=== PATIENT | male | born 1960 | race Caucasian/White ===

== ENCOUNTER 2022-05-06 13:53 | Emergency (ER) | payer OTHER, SELFPAY ==
[2022-05-06 14:07] VITALS: BP 152/70; PULSE 76; RESP 18; TEMP 37.1; O2SAT 96; BMI 42.9
--- NOTE | 2022-05-06 16:55 | ED_ITS ---
HPI - General Adult General Time Seen by Provider: 16:55 Date Seen: 05/06/22 Chief complaint: Extremity Pain/Injury, Lower Stated complaint: Right calf injury Time Seen by Provider: 05/06/22 16:52 Source: patient Mode of arrival: ambulatory History of Present Illness HPI narrative: Raphael is a 62-year-old male past medical history includes hypertension, diabetes mellitus type 2, presents emerged department with a right lower extremity injury. Patient states that he usually goes for a walk 6-7 days per week, it is about 2 to 2-1/2 mi. patient did not notice any injury to his right lower extremity. He has had varicose vein stripping on that lower extremity in the past, he has had issues like this before where they did a ultrasound which was normal. He again walked Friday and Friday with no difficulty, he woke up Friday morning increased bruising and swelling in the right lower extremity, pain is mostly a right calf, and around his ankles, he was wearing some compression stockings, pain is better when he walks. No history of any DVTs or PEs, no recent travel. He denies any shortness of breath or chest pain. Did not hear a popping sensation or known injury. The bruising and swelling has worsened. Patient denies any numbness or tingling of his right lower extremity. Due to worsening discomfort he presents emerged department. Related Data Home Medications Medication Instructions Recorded Confirmed aspirin 81 mg tablet,delayed 81 mg PO DAILY 05/06/22 05/06/22 release (Adult Aspirin Regimen) atorvastatin 10 mg tablet mg 05/06/22 glipizide 10 mg tablet mg 05/06/22 losartan 25 mg tablet mg 05/06/22 omega-3 fatty acids PO 05/06/22 Allergies Allergy/AdvReac Type Severity Reaction Status Date / Time No Known Drug Allergies Allergy Verified 05/06/22 14:13 Review of Systems Status of ROS: Reports: 10 or more systems reviewed and unremarkable except as noted in History and below Exam Narrative: Exam Narrative: General: No obvious distress sitting comfortably HEENT: Pupils equal round reactive to light, extraocular muscles intact Neck: Supple, no JVD, full range of motion Lungs: Clear to auscultation bilaterally Heart: Normal sinus rhythm S1-S2 Abdomen: Soft, nontender, obese Muscle skeletal: Right lower extremity, there are varicosities present, no palpable cord, tender to palpation the right calf, ecchymosis swelling surrounding the right ankle, Homans positive, patient can dorsal and plantar flex, CMS intact. No warmth or redness. : Neuro alert awake and oriented x3 Const: Vital Signs, click to edit/add: Vital Signs - 24 hr 05/06/22 14:07 Temperature 98.8 F Pulse Rate [Pulse Oximeter] 76 Respiratory Rate 18 Blood Pressure [Ri ght Upper Arm] 152/70 H Pulse Oximetry 96 Oxygen Delivery Me thod Room Air Course Course Hospital Course: 4:55 PM: AIDET performed, vitals are stable, workup will include basic labs including CBC, CRP and INR, seems less likely cellulitis, plan to rule out DVT or superficial thrombophlebitis with US right lower extremity. May consider further imaging if ultrasound is normal, seems less likely traumatic since patient denies any injury. Patient was nothing for pain at this time Reevaluation(s) Reevaluation #1: . Imaging showed, No right lower extremity DVT. Moderately enlarged varicose veins. Will obtain CT right lower extremity without IV contrast. Patient was in agreement, labs were reassuring. Time: 19:58 Vital Signs Vital signs: Initial Vital Signs Temperature 98.8 F 05/06/22 14:07 Temperature Source Temporal Artery Scan 05/06/22 14:07 Pulse Rate 76 05/06/22 14:07 Respiratory Rate 18 05/06/22 14:07 Blood Pressure 152/70 H 05/06/22 14:07 Blood Pressure Mean 97 05/06/22 14:07 Blood Pressure Position Sitting 05/06/22 14:07 Pulse Oximetry 96 05/06/22 14:07 Oxygen Delivery Method 05/06/22 14:07 Vital Signs Temperature 98.8 F 05/06/22 14:07 Pulse Rate 76 05/06/22 14:07 Respiratory Rate 18 05/06/22 14:07 Blood Pressure 152/70 H 05/06/22 14:07 Pulse Oximetry 96 05/06/22 14:07 Oxygen Delivery Method 05/06/22 14:07 Temperature 98.8 F 05/06/22 14:07 Pulse Rate 76 05/06/22 14:07 Respiratory Rate 18 05/06/22 14:07 Blood Pressure 152/70 H 05/06/22 14:07 Pulse Oximetry 96 11/21/22 14:07 Oxygen Delivery Method 05/06/22 14:07 Medical Decision Making Lab Data Labs: Lab Results 05/06/22 05/06/22 05/06/22 Range/Units 17:27 17:27 17:27 WBC 6.39 (4.50-11.00) K/uL RBC 5.78 (4.30-5.90) m/uL Hgb 19.3 H (13.5-17.5) gm/dL Hct 57.5 H (37.0-53.0) % MCV 100 (80-100) fL MCH 33 (26-34) pg MCHC 34 (32-36) gm/dL RDW Coeff of Nawaf 13.3 (11.5-15.5) % Plt Count 150 (140-440) K/uL Neut % (Auto) 56.6 (42.0-72.0) % Lymph % (Auto) 26.6 (20-44) % [place] % (Auto) 12.1 H (0.0-11.0) % Eos % (Auto) 4.2 (0.0-7.0) % Baso % (Auto) 0.3 (0.0-3.0) % Neut # (Auto) 3.62 (1.7-7.0) K/uL Lymph # (Auto) 1.70 (0.90-2.90) K/uL [place] # (Auto) 0.80 (0.00-0.90) K/UL Eos # (Auto) 0.27 (0.00-0.50) K/uL Baso # (Auto) 0.02 (0.00-0.30) K/uL Abs Immat Gran (auto) 0.01 (0.00-0.30) K/uL Imm/Tot Granulo (auto) 0.2 % INR 0.98 (0.91-1.10) C-Reactive Protein < 0.5 L (0.5-1.0) mg/dL Discharge Plan Discharge Clinical Impression: Swelling of right lower extremity Patient Disposition: Home, Self-Care Condition: Improved Instructions: Edema (ED) Additional Instructions: To follow up with primary care provider in the next 3-5 days for recheck. To continue to elevated, where compression stocking for the swelling. Return if worsening symptoms. Activity Level: Activity as Tolerated Prescriptions: No Action atorvastatin 10 mg tablet Label Comments: Take 1 Tablet (10 mg) by mouth at bedtime glipizide 10 mg tablet Label Comments: Take 1 Tablet (10 mg) by mouth 2 times daily before meals losartan 25 mg tablet Label Comments: TAKE ONE TABLET BY MOUTH ONE TIME DAILY aspirin [Adult Aspirin Regimen] 81 mg tablet,delayed release (DR/EC) 81 mg PO DAILY omega-3 fatty acids [Fish Oil] PO Follow Up/Referrals: Jorge Kirkland MD [Staff Physician] - Stand Alone Forms: [employer] Info Instructions
--- NOTE | 2022-05-06 17:05 | CRLHL7_ITS ---
For Patients: As a result of the Century Cures Act, medical imaging exams and procedure reports are released immediately into your electronic medical record. You may view this report before your referring provider. If you have questions, please contact your health care provider. INDICATION: Leg pain and swelling. TECHNIQUE: Ultrasound venous duplex lower right extremity. Compression venous exam was performed using box-scale, color Doppler, and spectral Doppler analysis. COMPARISON: None. FINDINGS: Deep veins: Sonographic imaging demonstrates the right common femoral, deep femoral, superficial femoral, popliteal, posterior tibial and the contralateral right common femoral veins to be fully compressible with normal color Doppler blood flow. Superficial veins: Greater saphenous vein is fully compressible. Moderately enlarged varicose veins. No popliteal cyst. IMPRESSION: No right lower extremity DVT. Moderately enlarged varicose veins. Dictated by Rahat Schwartz MD @ 05/06/2022 7:42:53 PM (Electronically Signed)
--- OUTSIDE RECORDS SUMMARY | 2022-05-06 17:30 | XMS_ITS | Clinical Summary ---
:1960 Author Organization [employer] [facility] [place] [address] Care Team Providers Name Role Phone Seymour Leong MD Primary Care Provider Allergies Active Allergy Reactions Severity Noted Date Comments Azithromycin Diabetes, 06/23/2018 Exacerbation, Dizziness Artificial Other - Describe In 07/05/2021 Systane Eye Drops~ Tears(Hypromellose) Comment Field Severe burning and pain Metformin GI Upset 02/04/2020 Rosuvastatin Other - Describe In 08/18/2020 Signific ant fatigue Comment Field Medications Medication Sig Dispensed Refills Start Date End Date Status aspirin chewable 81 Take 1 tablet 0 01/26/2019 Active mg chewable tablet by mouth once daily with a meal. losartan (COZAAR) Take 1 Tablet 90 Tablet 3 09/10/2021 Active 25 mg (25 mg) by tabletIndications: mouth once Stage 3a chronic daily. kidney disease (HC) atorvastatin Take 1 Tablet 90 Tablet 3 10/05/2021 Ac tive (LIPITOR) 10 mg (10 mg) by tabletIndications: mouth at Hyperlipidemia, bedtime. unspecified hyperlipidemia type glipiZIDE Take 1 Tablet 180 Tablet 3 10/05/2021 Acti ve (GLUCOTROL) 10 mg (10 mg) by tabletIndications: mouth 2 times Type 2 diabetes daily before mellitus without meals. complication, without long-term current use of insulin (HC) testosterone APPLY 4 PUMPS 360 g 0 04/26/2022 Ac tive (FORTESTA) 10 (80MG) ON mg/0.5 gram DRY, CLEAN, /actuation HAIRLESS SKIN glpmIndications: ONCE DAILY. Hypogonadism in male testosterone Apply 80 mg 360 g 0 12/11/2021 04/26/20 Disc ontinued (FORTESTA) 10 on dry, 22 mg/0.5 gram clean, /actuation hairless skin glpmIndications: once daily. Hypogonadism in male metFORMIN Take 1.5 180 Tablet 3 12/13/2021 04/09/20 Disconti nued (GLUCOPHAGE) 500 mg Tablets (750 22 (*Patient states tabletIndications: mg) by mouth no longer Type 2 diabetes in the taki ng/Not on mellitus without morning and s ending facility complication, 1.5 Tablets list ) without long-term (750 mg) in current use of the evening. insulin (HC) Take with meals. Active Problems Problem Noted Date Type 2 diabetes mellitus with microalbuminuria, withou t long-term current 06/24/2018 use of insulin Hypogonadism in male 06/24/2018 TASHI on CPAP 06/23/2018 Encounters Date Type Specialty Care Team Description 05/06/2022 Nurse Triage Seymour Leong, Leg [place] n/problem 04/26/2022 Refill [place], Luke Edward, Refil l Request (Testosterone) 04/09/2022 Office Visit Seymour Leong Diabete s 04/09/2022 Travel 04/08/2022 Orders Only Lab, [facility] 04/07/2022 Travel 03/17/2022 Telephone Seymour Leong Colorec tal Cancer Screening (Cologuacelso bonilla le could not be processed ) from Last 3 Months Immunizations Name Administration Dates Next Due COVID-19 vaccine (Moderna 100mcg/0.5mL) 10/05/2021, 09/30/19 21, 09/01/2020 PF, MDV Influenza, IIV4 03/14/2022 Influenza, Inactivated AIIV4 (Age 65+ 03/23/2021 Years) Preserv Free TD, UNSPECIFIED 10/14/2014 Family History Medical History Relation Name Comments Cancer-colon No Family History Social History Tobacco Use Types Packs/Day Years Used Date Never Smoker Smokeless Tobacco: Never Used Tobacco Cessation: Counseling Given: Yes Alcohol Use Standard Drinks/Week Comments No 0 (1 standard drink = 0.6 oz pure alcoho l) Sex Assigned at Date Recorded Not on file COVID-19 Exposure Response Date Recorded In the last 10 days, have you been in contact No / Unsure 04/09/2022 12:56 PM CDT with someone who was confirmed or suspected to have Coronavirus/COVID-19? Obstetrics History Last Filed Vital Signs Vital Sign Reading Time Taken Comments Blood Pressure 138/73 04/09/2022 1:03 PM CDT Pulse 67 04/09/2022 1:03 PM CDT Temperature 36.9 ??C (98.4 ??F) 08/18/2020 11:28 AM CLINICAL DATA RESEARCH Respiratory Rate - - Oxygen Saturation 95% 04/09/2022 1:03 PM CDT Inhaled Oxygen Concentration - - Weight 145.9 kg (321 lb 9.6 oz) 04/09/2022 1:03 PM CDT Height 184.6 cm (6' 0.68) 04/09/2022 1:03 PM CDT Body Mass Index 42.81 04/09/2022 1:03 PM CDT Plan of Treatment Upcoming Encounters Date Type Specialty Care Team Description 05/21/2022 Telemedicine [place], Judd ospina MD [address] [facility] [address] [place], [place] [address] (Wo rk) 08/08/2022 Orders Only Lab, [facility] 08/09/2022 Office Visit Seymour Leong MD [address] [place], [place] [address] (Wo rk) Health Maintenance Due Date Last Done Comments Pneumococcal series for age 19-64 1965 (1 - PCV) Tdap 1970 HIV for age 15-65 1974 Zoster (shingles) series for age 0802/13/2009 50+ (1 of 2) BMI (ht and wt on same day) for 04/09/2023 04/09/2022, 04/2 07/2021, age 18+ 02/04/2020, Additional history exists Depression screening for age 12+ 04/09/2023 04/09/2022, 08/2019, 02/04/2020, Additional history exists Tetanus booster 10/14/2024 10/14/2014 Fecal testing sDNA-FIT (Cologuard) 03/27/2025 03/27/2022, 0 01/28/2019, for age 45-75 10/27/2018 Lipids for age 45-75 10/02/2026 10/02/2021, 02/26/2021, 11/20/2020, Additional history exists Hepatitis C screening for age Completed 07/23/2019 18-79 COVID-19 vaccine series Completed 03/14/2022, 10/05/2021, 04/26/2021, Additional history exists Influenza for age 50-64 Completed 03/14/2022 Procedures Procedure Name Priority Date/Time Associated Comments Diagnosis HEMOGLOBIN A1C Routine 04/08/2022 8:28 AM Type 2 diabetes Resu lts for this CDT mellitus without procedure a re in complication, the results without long-term section. current use of insulin (HC) SDNA-FIT EXTERNAL Routine 03/27/2022 12:45 Screen for colon Re sults for this (COLOGUARD) PM CDT cancer procedure are i n the results section. SDNA-FIT EXTERNAL Routine 03/13/2022 1:30 PM Screen for colon Results for this (COLOGUARD) - CDT cancer procedure are in Unsuccessful Attempt the res ults section. from Last 3 Months Results HEMOGLOBIN A1C MONITORING (POCT) (04/08/2022 8:28 AM CDT) P athologist Signature HEMOGLOBIN A1C 5.1 <=6.4 % 04/08/2022 [facility] MONITORING 8:39 AM CDT [place] (POCT) [facility] Specimen Anatomical Collection Method / Collection Time Recei maggie Time (Source) Location / Volume Laterality Blood BLOOD SPECIMEN / Venipuncture / 04/08/2022 8:28 2021 8:28 Unknown Unknown AM CDT AM CDT Narrative [facility] - 2021 8:39 AM CDT ? (<=6.9%) ? Indicates good control ? (7.0% to 7.9%) ? Indicates fa ir control ? (>=8.0%) ? Indicates poor control ?? NOTE: ??These thresholds are guideli jeff and ?individual targets may va ry. Falsely low levels may be seen with: Recent Transfusion, Recent Significant B lood Loss, Hemolytic Diseases, or Falsely elevated levels may be seen with : Untreated Anemias, Splenectomy ? Seymour Leong MD CHEMISTRY Performing Organization Address City/State/ZIP Code Phon e Number [facility] [address] [place] [address] SDNA-FIT EXTERNAL (COLOGUARD) (03/27/2022 12:45 PM CDT)Only the most recent of2 resultswithin the time period is included. [facility] gist Method Time Signature NONINV COLON Negative Negative 03/31/2022 [employer] [facility] DNA+OCC 4:52 PM CDT LABORATORIES BLD SCRN (CLIA STL-IMP #:[id number]) Comment: NEGATIVE TEST RESULT. A negative Cologua rd result indicates a low likelihood that a colorectal cancer (CRC) or advanced adenoma (adenomatous polyps with more advanced pre-malignant features) ??is presen t. The chance that a person with a negat will Cologuard test has a colorectal cancer is less than 1 in 1500 (negative predictive value >99.9%) or has an ??advanced adenoma is less than ??5.3% (negative predictive value 94.7%). These data are based on a prospective cross-sectional study of 10,000 individuals at average risk for colorectal cancer who were screened with both Cologuard and colonoscopy. ( Noe Miles et al, N Engl J Med 2014;37 0(14):7405-1095) The normal value (reference range) for this assay is negative. COLOGUARD RE-SCREENING RECOMMENDATION: P eriodic colorectal cancer screening is an important part of preventive healthcare for asymptomatic individuals at average risk for colorectal cancer. ??Following a negative Cologuard result, the [place] Cancer Society and U.S. Multi-Society Task Force screening guidelines recommend a Cologuard re-screening interval of 3 years. References: [place] [employer] Dwain schuler for Colorectal Cancer Screening: https://www.cancer.org/cancer/fzrau-fhjaiv-nldurd/dgerkcwqh-zwmqhwjiu-srzppnd/ac Sumit DK, Anna POPE, Juan MCLEAN, Colorectal Cancer Screenin g: Recommendations for Physicians and Patients from the U.S. Multi-Society Task Force on Colorectal Cancer Screening , Am J Gastroenterology 2017; 112:1142-9162. TEST DESCRIPTION: Composite algorithmic analysis of stool DNA-biomarkers with hemoglobin immunoassay. ?? Quantitative values of individual biomarkers are not reportable and are not associated with indiv idual biomarker result reference ranges. Cologuard is intended for colorectal cancer screening of adults of either sex, 45 years or older, who are at average- risk for colorectal cancer (CRC). Cologuard has been approved for use by the U.S. FD A. The performance of Cologuard was established in a cross sectional study of average-risk adults aged 50-84. Cologuard performance in patients ages 45 to 49 year s was estimated by sub-group analysis of near-age groups. Colonoscopies performed for a positive result may find as the most clinically significant lesion: colorectal cancer [4.0%], advanced adenoma (in cluding sessile serrated polyps greater than or equal to 1cm diameter) [20%] or non- advanced adenoma [31%]; or no colorectal neoplasia [45%]. These estimates are derived from a prospective cross-sectio nal screening study of 10,000 individual s at average risk for colorectal cancer who were screened with both Cologuard and colonoscopy. (Noe Harmon al, N Engl J Med 2014;370(14):7661-0757.) Cologuar d may produce a false negative or false positive result (no colorectal cancer or precancerous polyp present at colonoscopy follow up). A negative Cologuard test result does not guarantee the absence of CRC or advanced adenoma (pre-cancer). Th e current Cologuard screening interval is every 3 years. ([place] Cancer Society and U.S. Multi-Society Task Force). Cologuard performance data in a 10,000 patie nt pivotal study using colonoscopy as th e reference method can be accessed at the following location: www.Anagear.Confidex/results. Additional description of the Cologuard test process, warnings and precautions can be found at www.[employer].com. Specimen Anatomical Collection Method Collection Time Receive d Time (Source) Location / / Volume Laterality Stool specimen 03/27/2022 12:45 2 2:06 (specimen) PM CDT PM CDT (Rectum) Seymour Leong MD URINE Performing Organization Address City/State/ZIP Code Phon e Number [employer] (CLIA [address] [place] [address] #:[id number]) from Last 3 Months [employer] Self 1960 [address] (Home) [place] [id number] Care Teams [employer] Relationship Specialty Start Date End Date Seymour Leong MD PCP - General Family Practice 05/27/18 [address] [place], [place] [id number]
[2022-05-06 17:33] LABS: Basophils Absolute Auto 0.02 K/uL (0.00-0.30); Basophils Percent Auto 0.3 % (0.0-3.0); Eosinophils Absolute Auto 0.27 K/uL (0.00-0.50); Eosinophils Percent Auto 4.2 % (0.0-7.0); Hematocrit 57.5 % (37.0-53.0); Hemoglobin* 19.3 gm/dL (13.5-17.5); Immature Granulocytes Abs Auto 0.01 K/uL (0.00-0.30); Immature Granulocytes Pct Auto 0.2 %; Lymphocytes Percent Auto 26.6 % (20-44); Mean Corpuscular HGB Conc 34 gm/dL (32-36); Mean Corpuscular Hemoglobin 33 pg (26-34); Mean Corpuscular Volume 100 fL (80-100); Monocytes Percent Auto 12.1 % (0.0-11.0); Neutrophils Absolute Auto 3.62 K/uL (1.7-7.0); Neutrophils Percent Auto 56.6 % (42.0-72.0); Platelet Count* 150 K/uL (140-440); RDW Coefficient of Variation % 13.3 % (11.5-15.5); Red Blood Count 5.78 m/uL (4.30-5.90); White Blood Count* 6.39 K/uL (4.50-11.00)
[2022-05-06 17:34] LABS: Slide Review Reflex No
[2022-05-06 17:56] LABS: INR 0.98 (0.91-1.10); Prothrombin Time 13.6 Seconds
[2022-05-06 18:06] LABS: C Reactive Protein* < 0.5 mg/dL (0.5-1.0)
--- NOTE | 2022-05-06 19:25 | CRLHL7_ITS ---
For Patients: As a result of the Century Cures Act, medical imaging exams and procedure reports are released immediately into your electronic medical record. You may view this report before your referring provider. If you have questions, please contact your health care provider. INDICATION: Right lower leg swelling, bruising. TECHNIQUE: CT right tibia/fibula without contrast. Coronal and sagittal reformats were generated. COMPARISON: None. FINDINGS: Bones: Alignment is normal. No sign of acute fracture. No suspicious bony lesions. Joints: Unremarkable. Soft tissues: Dilated tortuous vessels throughout the leg are probably varicose veins. Mild diffuse soft tissue stranding and edema. Vascular calcifications in the arterial structures. IMPRESSION: No acute or significant findings. Please note that all CT scans at this facility use dose modulation, iterative reconstruction, and/or weight-based dosing when appropriate to reduce radiation dose to as low as reasonably achievable. Dictated by Frederic Isaac MD @ 05/06/2022 8:19:12 PM (Electronically Signed)
== END 2022-05-06 20:47 | disposition home or self-care (01) ==
PROVIDERS: Emergency Provider Student in an Organized Health Care Education/Training Program; PCP Surgery
DX: M79.89 Other specified soft tissue disorders (principal)
CPT/HCPCS: 36415; 73700; 85025; 85610; 86140; 93971; 99283; 99284

== ENCOUNTER 2025-04-12 09:28 | Outpatient (CLI) | payer MEDICARE, SELFPAY | END 2025-04-12 09:29 | disposition home or self-care (01) | LOC: OP CLINIC 09:33 | PROVIDERS: PCP Surgery; Visit Provider Surgery | DX: Z53.9 Procedure and treatment not carried out, unspecified reason (principal) ==

== ENCOUNTER 2025-04-13 10:07 | Outpatient (CLI) | payer MEDICARE, SELFPAY ==
--- NOTE | 2025-04-13 12:24 | P.ANES_ITS ---
Anesthesia Charges Start Date/Time Anesthesia Start Date: 04/13/25 Anesthesia Start Time: 11:21 Stop Date/Time Anesthesia Stop Date: 04/13/25 Anesthesia Stop Time: 12:18 Coding CPT Codes CPT Codes: ANES LWR INTST NDSC NOS - 54886 ([id number]) P3 - PATIENT W/SEVERE SYS DISEASE, QK - TRAVEL PTA 2-4 CNCRNT ANES PROC
--- NOTE | 2025-04-13 12:24 | W.ANESCHARGE ---
Anesthesia Charges Start Date/Time Anesthesia Start Date: 04/13/25 Anesthesia Start Time: 11:21 Stop Date/Time Anesthesia Stop Date: 04/13/25 Anesthesia Stop Time: 12:18 Coding CPT Codes CPT Codes: ANES LWR INTST NDSC NOS - 26330 ([id number]) P3 - PATIENT W/SEVERE SYS DISEASE, QK - MANAGER WORKERS COMPENSATION 2-4 CNCRNT ANES PROC
--- NOTE | 2025-04-13 13:13 | P.ANES_ITS ---
Anesthesia Charges Start Date/Time Anesthesia Start Date: 04/13/25 Anesthesia Start Time: 11:21 Stop Date/Time Anesthesia Stop Date: 04/13/25 Anesthesia Stop Time: 12:18 Coding CPT Codes CPT Codes: ANES LWR INTST NDSC NOS - 53752 ([id number]) QK - ELECTRONIC SERVICE TECHNICIAN 2-4 CNCRNT ANES PROC, QX - COMMANDING OFFICER MOTORIZED SQUAD SVC W/ MED DIRECTION, P3 - PATIENT W/SEVERE SYS DISEASE
--- NOTE | 2025-04-13 13:13 | W.ANESCHARGE ---
Anesthesia Charges Start Date/Time Anesthesia Start Date: 04/13/25 Anesthesia Start Time: 11:21 Stop Date/Time Anesthesia Stop Date: 04/13/25 Anesthesia Stop Time: 12:18 Coding CPT Codes CPT Codes: ANES LWR INTST NDSC NOS - 19407 ([id number]) QK - EMERGENCY SPILL RESPONSE TECHNICIAN 2-4 CNCRNT ANES PROC, QX - TIRE BUILDER SVC W/ MED DIRECTION, P3 - PATIENT W/SEVERE SYS DISEASE
== END 2025-04-13 10:08 | disposition home or self-care (01) ==
LOC: OP CLINIC 10:07
PROVIDERS: PCP Surgery; Visit Provider Surgery
DX: Z12.11 Encounter for screening for malignant neoplasm of colon (principal); D12.2 Benign neoplasm of ascending colon; D12.3 Benign neoplasm of transverse colon
CPT/HCPCS: 00811; 45385; 88305; J2704